=== PATIENT | male | born 1985 ===

== ENCOUNTER 2019-08-22 16:08 | Inpatient (IN) | payer OTHER ==
[~2019-08-22] VITALS: Ht 175.3 cm; Wt 53.0 kg
[2019-08-22 16:40] LABS: GLUCOSE,POINT OF CARE 73 MG/DL (70-110)
[2019-08-22] MEDS ORDERED: ACETAMINOPHEN 325 MG TABLET PO PRN ×2 (17:15→18:15)
[2019-08-22 17:16] LABS: EOSINOPHILS % (AUTO) 0.4 % (1.0-6.0); HEMATOCRIT 41.6 % (41-53); HEMOGLOBIN 13.9 g/dL (13.5-17.5); LYMPHOCYTES # (AUTO) 2.5 K/uL (1.0-4.8); LYMPHOCYTES % (AUTO) 41.7 % (22.0-44.0); MEAN CORPUSCULAR HEMOGLOBIN 28.5 pg (26.0-34.0); MEAN CORPUSCULAR HGB CONC 33.5 G/dL (31.0-37.0); MEAN CORPUSCULAR VOLUME 85 fL (80-100); MONOCYTES # (AUTO) 0.5 K/uL (0.1-1.0); MONOCYTES % (AUTO) 8.8 % (2.0-9.0); NEUTROPHILS # (AUTO) 2.9 K/uL (1.8-7.7); NEUTROPHILS % (AUTO) 48.1 % (40.0-70.0); PLATELET COUNT (AUTO) 175 K/uL (150-450); RED BLOOD CELL COUNT(AUTO) 4.89 MIL/uL (4.50-5.90); RED CELL DISTRIBUTION WIDTH 13.1 % (11.5-14.5)
[2019-08-22 17:38] LABS: ANION GAP 11 mmol/L (8-16); CALCIUM, TOTAL 9.4 mg/dL (8.8-10.5); CARBON DIOXIDE 29 mmol/L (22-29); CHLORIDE 103 mmol/L (98-107); CREATININE 0.88 mg/dL (0.60-1.30); GLOMERULAR FILTR. RATE CALC > 60 mL/min (>60); GLUCOSE,RANDOM 92 mg/dL (70-110); POTASSIUM 4.1 mmol/L (3.5-5.1); SODIUM SERUM 143 mmol/L (136-145); UREA NITROGEN, BLOOD 17 mg/dL (7-18)
[2019-08-22 17:42] LABS: ALANINE AMINOTRANSFERASE 15 U/L (12-78); ALBUMIN 4.6 g/dL (3.4-5.0); ALKALINE PHOSPHATASE 62 U/L (46-116); ASPARTATE AMINOTRANSFERASE 15 U/L (15-37); BILIRUBIN,TOTAL 0.4 mg/dL (0.1-1.0); TOTAL PROTEIN, SERUM 8.3 g/dL (6.4-8.2)
[2019-08-22] MEDS ORDERED: MAGNESIUM HYDROXIDE SUSPENSION 30 ML UDCUP PO PRN (18:15)
[2019-08-22] MEDS ORDERED: ZOLPIDEM TARTRATE 5 MG TABLET PO PRN (18:15)
[2019-08-22] MEDS ORDERED: ONDANSETRON HCL 4 MG/2 ML VIAL IVP PRN (18:15)
[2019-08-22] MEDS ORDERED: BISACODYL 10 MG RECTAL RECTAL SUPPOSITORY PR PRN (18:15)
[2019-08-22] MEDS ORDERED: ALBUTEROL SULFATE 2.5 MG/0.5 ML NEB SOLUTION NEB PRN (18:15)
[2019-08-22] MEDS ORDERED: IPRATROPIUM BROMIDE 0.5 MG/2.5 ML NEB SOLUTION NEB PRN (18:15)
[2019-08-22 18:36] VITALS: BP 128/76
[2019-08-22 19:58] VITALS: BP 143/75
[2019-08-22] MEDS: DOCUSATE SODIUM 100 MG CAPSULE PO SCH (21:00)
[2019-08-22] MEDS: HEPARIN SODIUM,PORCINE 5,000 UNITS/ML VIAL SQ SCH (23:27)
[2019-08-23 00:19] VITALS: BP 116/70
[2019-08-23 04:53] VITALS: BP 115/82
[2019-08-23 07:40] VITALS: BP 111/85
[2019-08-23] MEDS: PANTOPRAZOLE SODIUM 40 MG DR TABLET PO SCH (09:28)
[2019-08-23] MEDS: DOCUSATE SODIUM 100 MG CAPSULE PO SCH ×2 (09:28→23:05)
[2019-08-23] MEDS: HEPARIN SODIUM,PORCINE 5,000 UNITS/ML VIAL SQ SCH ×3 (09:28→23:05)
[2019-08-23 11:35] VITALS: BP 121/79
[2019-08-23 20:00] VITALS: BP 117/69
[2019-08-24] MEDS: HEPARIN SODIUM,PORCINE 5,000 UNITS/ML VIAL SQ SCH ×4 (08:00→23:48)
[2019-08-24] MEDS: MULTIVITAMINS WITH MINERALS, THERAPEUTIC TABLET PO SCH ×2 (08:26→09:00)
[2019-08-24] MEDS: PANTOPRAZOLE SODIUM 40 MG DR TABLET PO SCH ×2 (08:26→09:00)
[2019-08-24] MEDS: DOCUSATE SODIUM 100 MG CAPSULE PO SCH ×3 (08:26→21:30)
[2019-08-24 11:40] VITALS: BP 119/76
[2019-08-24] MEDS ORDERED: OLANZapine 5 MG TABLET PO SCH (12:15)
[2019-08-24 12:25] LABS: EOSINOPHILS % (AUTO) 0.3 % (1.0-6.0); HEMATOCRIT 40.5 % (41-53); HEMOGLOBIN 13.7 g/dL (13.5-17.5); LYMPHOCYTES % (AUTO) 41.3 % (22.0-44.0); MEAN CORPUSCULAR HGB CONC 33.9 G/dL (31.0-37.0); MEAN CORPUSCULAR VOLUME 85 fL (80-100); MONOCYTES # (AUTO) 0.5 K/uL (0.1-1.0); MONOCYTES % (AUTO) 10.8 % (2.0-9.0); NEUTROPHILS # (AUTO) 2.2 K/uL (1.8-7.7); NEUTROPHILS % (AUTO) 46.6 % (40.0-70.0); PLATELET COUNT (AUTO) 166 K/uL (150-450); RED BLOOD CELL COUNT(AUTO) 4.74 MIL/uL (4.50-5.90)
[2019-08-24 12:42] LABS: ANION GAP 5 mmol/L (8-16); CALCIUM, TOTAL 8.8 mg/dL (8.8-10.5); CARBON DIOXIDE 29 mmol/L (22-29); CHLORIDE 102 mmol/L (98-107); CREATININE 0.71 mg/dL (0.60-1.30); GLOMERULAR FILTR. RATE CALC > 60 mL/min (>60); GLUCOSE,RANDOM 92 mg/dL (70-110); PHOSPHORUS 4.2 mg/dL (2.5-4.9); POTASSIUM 3.8 mmol/L (3.5-5.1); SODIUM SERUM 136 mmol/L (136-145); UREA NITROGEN, BLOOD 15 mg/dL (7-18)
[2019-08-24] MEDS: RisperiDONE CONC 1 MG/ML SOLUTION ORAL.SYG PO SCH ×2 (14:22→21:30)
[2019-08-24 15:42] VITALS: BP 124/77
[2019-08-24 19:56] VITALS: BP 121/73
[2019-08-24 23:51] VITALS: BP 106/72
[2019-08-25 05:03] VITALS: BP 121/90
[2019-08-25 07:48] VITALS: BP 121/72
[2019-08-25] MEDS: HEPARIN SODIUM,PORCINE 5,000 UNITS/ML VIAL SQ SCH ×4 (08:00→23:12)
[2019-08-25] MEDS: RisperiDONE CONC 1 MG/ML SOLUTION ORAL.SYG PO SCH ×3 (08:32→20:29)
[2019-08-25] MEDS: DOCUSATE SODIUM 100 MG CAPSULE PO SCH ×2 (09:00→20:29)
[2019-08-25] MEDS: PANTOPRAZOLE SODIUM 40 MG DR TABLET PO SCH (09:00)
[2019-08-25] MEDS: MULTIVITAMINS WITH MINERALS, THERAPEUTIC TABLET PO SCH (09:00)
[2019-08-25 11:44] VITALS: BP 113/68
[2019-08-25 16:43] VITALS: BP 112/76
[2019-08-25 19:33] VITALS: BP 94/73
[2019-08-26] VITALS (7 sets, daily range): BP systolic 89–126; BP diastolic 45–75
[2019-08-26] MEDS: HEPARIN SODIUM,PORCINE 5,000 UNITS/ML VIAL SQ SCH ×2 (08:00→15:19)
[2019-08-26] MEDS: DOCUSATE SODIUM 100 MG CAPSULE PO SCH ×2 (09:00→20:10)
[2019-08-26] MEDS: MULTIVITAMINS WITH MINERALS, THERAPEUTIC TABLET PO SCH (09:00)
[2019-08-26] MEDS: PANTOPRAZOLE SODIUM 40 MG DR TABLET PO SCH (09:00)
[2019-08-26] MEDS: RisperiDONE CONC 1 MG/ML SOLUTION ORAL.SYG PO SCH ×2 (09:49→20:10)
[2019-08-27 04:54] VITALS: BP 104/73
[2019-08-27 07:41] VITALS: BP 105/65
[2019-08-27] MEDS: PANTOPRAZOLE SODIUM 40 MG DR TABLET PO SCH (08:25)
[2019-08-27] MEDS: MULTIVITAMINS WITH MINERALS, THERAPEUTIC TABLET PO SCH (08:25)
[2019-08-27] MEDS: DOCUSATE SODIUM 100 MG CAPSULE PO SCH ×3 (08:25→21:00)
[2019-08-27] MEDS: RisperiDONE CONC 1 MG/ML SOLUTION ORAL.SYG PO SCH (08:25)
[2019-08-27] MEDS: HEPARIN SODIUM,PORCINE 5,000 UNITS/ML VIAL SQ SCH ×3 (08:30→17:15)
[2019-08-27 12:06] VITALS: BP 114/75
[2019-08-27 15:50] VITALS: BP 108/73
[2019-08-27 19:25] VITALS: BP 127/71
[2019-08-27] MEDS: RisperiDONE CONC 2 MG/2 ML SOLUTION ORAL.SYG PO SCH ×2 (20:09→20:13)
[2019-08-27 23:16] VITALS: BP 114/67
[2019-08-28 05:35] VITALS: BP 115/79
[2019-08-28 07:35] VITALS: BP 112/66
[2019-08-28] MEDS: RisperiDONE CONC 2 MG/2 ML SOLUTION ORAL.SYG PO SCH (08:22)
[2019-08-28] MEDS: DOCUSATE SODIUM 100 MG CAPSULE PO SCH ×2 (08:23→20:03)
[2019-08-28] MEDS: MULTIVITAMINS WITH MINERALS, THERAPEUTIC TABLET PO SCH (08:23)
[2019-08-28] MEDS: HEPARIN SODIUM,PORCINE 5,000 UNITS/ML VIAL SQ SCH ×2 (08:23)
[2019-08-28] MEDS: PANTOPRAZOLE SODIUM 40 MG DR TABLET PO SCH (08:23)
[2019-08-28 11:49] VITALS: BP 109/65
[2019-08-28 16:31] VITALS: BP 111/68
[2019-08-28 20:05] VITALS: BP_SYST 105; BP_SYST 132; BP_DIAS 65; BP_DIAS 87
[2019-08-29 00:25] VITALS: BP 109/71
[2019-08-29 04:30] VITALS: BP 117/78
[2019-08-29 07:32] VITALS: BP 92/50
[2019-08-29] MEDS: PANTOPRAZOLE SODIUM 40 MG DR TABLET PO SCH (08:13)
[2019-08-29] MEDS: HEPARIN SODIUM,PORCINE 5,000 UNITS/ML VIAL SQ SCH ×4 (08:13→23:25)
[2019-08-29] MEDS: DOCUSATE SODIUM 100 MG CAPSULE PO SCH ×2 (08:13→20:24)
[2019-08-29] MEDS: MULTIVITAMINS WITH MINERALS, THERAPEUTIC TABLET PO SCH (08:13)
[2019-08-29] MEDS: RisperiDONE CONC 2 MG/2 ML SOLUTION ORAL.SYG PO SCH ×2 (08:13→20:24)
[2019-08-29 11:14] VITALS: BP 112/72
[2019-08-29 19:31] VITALS: BP 118/78
[2019-08-29 20:56] LABS: AMPHET/METH SCREEN,URINE NEGATIVE (NEGATIVE); BARBITURATE SCREEN, URINE NEGATIVE (NEGATIVE); BENZODIAZEPINES SCREEN,URINE NEGATIVE (NEGATIVE); CANNABINOID SCREEN,URINE NEGATIVE (NEGATIVE); COCAINE SCREEN,URINE NEGATIVE (NEGATIVE); METHADONE SCREEN, URINE NEGATIVE (NEGATIVE); OPIATE SCREEN,URINE NEGATIVE (NEGATIVE)
[2019-08-29 20:57] LABS: PHENCYCLIDINE SCREEN,URINE NEGATIVE (NEGATIVE)
[2019-08-29 23:14] VITALS: BP 105/62
[2019-08-30 04:42] VITALS: BP 104/68
[2019-08-30 07:42] VITALS: BP 100/60
[2019-08-30] MEDS: RisperiDONE CONC 2 MG/2 ML SOLUTION ORAL.SYG PO SCH ×2 (08:26→20:17)
[2019-08-30] MEDS: MULTIVITAMINS WITH MINERALS, THERAPEUTIC TABLET PO SCH (08:26)
[2019-08-30] MEDS: PANTOPRAZOLE SODIUM 40 MG DR TABLET PO SCH (08:26)
[2019-08-30] MEDS: DOCUSATE SODIUM 100 MG CAPSULE PO SCH ×2 (08:26→20:17)
[2019-08-30] MEDS: HEPARIN SODIUM,PORCINE 5,000 UNITS/ML VIAL SQ SCH ×2 (08:26→16:46)
[2019-08-30 11:25] VITALS: BP 107/71
[2019-08-30 15:45] VITALS: BP 114/63
[2019-08-30 19:30] VITALS: BP 114/18
[2019-08-31 00:10] VITALS: BP 102/60
[2019-08-31 04:44] VITALS: BP 120/73
[2019-08-31 07:32] VITALS: BP 109/67
[2019-08-31] MEDS: HEPARIN SODIUM,PORCINE 5,000 UNITS/ML VIAL SQ SCH ×3 (08:32→16:10)
[2019-08-31] MEDS: PANTOPRAZOLE SODIUM 40 MG DR TABLET PO SCH (08:32)
[2019-08-31] MEDS: DOCUSATE SODIUM 100 MG CAPSULE PO SCH ×2 (08:32→20:15)
[2019-08-31] MEDS: MULTIVITAMINS WITH MINERALS, THERAPEUTIC TABLET PO SCH (08:32)
[2019-08-31] MEDS: RisperiDONE CONC 2 MG/2 ML SOLUTION ORAL.SYG PO SCH ×2 (08:32→20:20)
[2019-08-31 12:42] VITALS: BP 112/71
[2019-08-31 16:04] VITALS: BP 103/67
[2019-08-31 20:02] VITALS: BP 115/68
[2019-09-01] MEDS: HEPARIN SODIUM,PORCINE 5,000 UNITS/ML VIAL SQ SCH ×4 (01:01→20:36)
[2019-09-01 02:23] VITALS: BP 114/61
[2019-09-01 05:37] VITALS: BP 124/70
[2019-09-01 08:00] VITALS: BP 125/70
[2019-09-01] MEDS: RisperiDONE CONC 2 MG/2 ML SOLUTION ORAL.SYG PO SCH ×2 (08:33→20:34)
[2019-09-01] MEDS: DOCUSATE SODIUM 100 MG CAPSULE PO SCH ×2 (08:33→20:33)
[2019-09-01] MEDS: MULTIVITAMINS WITH MINERALS, THERAPEUTIC TABLET PO SCH (08:33)
[2019-09-01] MEDS: PANTOPRAZOLE SODIUM 40 MG DR TABLET PO SCH (08:33)
[2019-09-01 12:12] VITALS: BP 102/65
[2019-09-01 15:56] VITALS: BP 110/63
[2019-09-01 20:25] VITALS: BP 108/64
[2019-09-02 00:20] VITALS: BP 102/62
[2019-09-02 05:20] VITALS: BP 100/70
[2019-09-02 08:30] VITALS: BP 115/76
[2019-09-02] MEDS: HEPARIN SODIUM,PORCINE 5,000 UNITS/ML VIAL SQ SCH ×3 (08:32→16:00)
[2019-09-02] MEDS: MULTIVITAMINS WITH MINERALS, THERAPEUTIC TABLET PO SCH (08:33)
[2019-09-02] MEDS: PANTOPRAZOLE SODIUM 40 MG DR TABLET PO SCH (08:33)
[2019-09-02] MEDS: DOCUSATE SODIUM 100 MG CAPSULE PO SCH ×2 (08:34→20:47)
[2019-09-02] MEDS: RisperiDONE CONC 2 MG/2 ML SOLUTION ORAL.SYG PO SCH ×2 (08:34→20:47)
[2019-09-02 12:02] VITALS: BP 106/59
[2019-09-02 16:38] VITALS: BP 107/82
[2019-09-02 20:07] VITALS: BP 106/62
[2019-09-03 00:19] VITALS: BP 119/65
[2019-09-03] MEDS: HEPARIN SODIUM,PORCINE 5,000 UNITS/ML VIAL SQ SCH ×4 (00:53→23:34)
[2019-09-03 04:23] VITALS: BP 100/60
[2019-09-03 08:42] VITALS: BP 103/67
[2019-09-03] MEDS: RisperiDONE CONC 2 MG/2 ML SOLUTION ORAL.SYG PO SCH ×2 (08:42→20:53)
[2019-09-03] MEDS: DOCUSATE SODIUM 100 MG CAPSULE PO SCH ×2 (08:44→20:52)
[2019-09-03] MEDS: PANTOPRAZOLE SODIUM 40 MG DR TABLET PO SCH (08:44)
[2019-09-03] MEDS: MULTIVITAMINS WITH MINERALS, THERAPEUTIC TABLET PO SCH (08:46)
[2019-09-03 12:16] VITALS: BP 103/63
[2019-09-03 15:43] VITALS: BP 105/61
[2019-09-03 20:18] VITALS: BP 108/61
[2019-09-04 00:40] VITALS: BP 108/64
[2019-09-04 04:05] VITALS: BP 112/72
[2019-09-04] MEDS: HEPARIN SODIUM,PORCINE 5,000 UNITS/ML VIAL SQ SCH (08:00)
[2019-09-04 08:55] VITALS: BP 109/68
[2019-09-04] MEDS: DOCUSATE SODIUM 100 MG CAPSULE PO SCH (09:00)
[2019-09-04] MEDS: MULTIVITAMINS WITH MINERALS, THERAPEUTIC TABLET PO SCH (09:00)
[2019-09-04] MEDS: PANTOPRAZOLE SODIUM 40 MG DR TABLET PO SCH (09:00)
[2019-09-04] MEDS: RisperiDONE CONC 2 MG/2 ML SOLUTION ORAL.SYG PO SCH (09:46)
[2019-09-04 11:20] VITALS: BP 99/59
[2019-09-04] MEDS ORDERED: RISP3 PO ×2 (11:56→12:00)
[2019-09-04] MEDS ORDERED: MULT-1239 PO (11:56)
[2019-09-04] MEDS ORDERED: ACET-2247 PO (11:58)
[2019-09-04] MEDS ORDERED: MOM30 PO (11:59)
== END 2019-09-04 14:40 | DRG 885 ==
LOC: EMS 16:15 → 6S 17:04
PROVIDERS: ADMIT Hospitalist; ATTEND Hospitalist
DX: F29 Unspecified psychosis not due to a substance or known physiological condition (principal); F43.10 Post-traumatic stress disorder, unspecified; K21.9 Gastro-esophageal reflux disease without esophagitis; F94.0 Selective mutism; J30.2 Other seasonal allergic rhinitis; M25.512 Pain in left shoulder
CPT/HCPCS: 83735; 84100; G0480; J1644